=== PATIENT | female | born 1995 | race Caucasian/White ===

== ENCOUNTER 2022-03-10 17:45 | Inpatient (IN) | payer BC ==
[2022-03-10] MEDS ORDERED: Lidocaine 1% (PF) 30 ML VIAL SC PRN (17:46)
[2022-03-10] MEDS ORDERED: hydrALAZINE 20 MG/ML VIAL SLOW IVP PRN ×2 (17:46→23:57)
[2022-03-10] MEDS ORDERED: Misoprostol 200 MCG TAB PR PRN (17:46)
[2022-03-10] MEDS ORDERED: Diphenoxylate HCl/Atropine Tablet PO PRN ×2 (17:46)
[2022-03-10] MEDS ORDERED: Ondansetron PF 4 MG/2 ML Vial IVP PRN ×2 (17:46→23:57)
[2022-03-10] MEDS ORDERED: Ibuprofen 800 MG TAB PO PRN (17:46)
[2022-03-10] MEDS ORDERED: Promethazine HCl 25 MG/ML VIAL IM PRN (17:46)
[2022-03-10] MEDS ORDERED: Butorphanol Tartrate 1 MG/ML VIAL SLOW IVP PRN (17:46)
[2022-03-10] MEDS ORDERED: Zolpidem Tartrate 5 MG TAB PO PRN ×2 (17:46→23:57)
[2022-03-10] MEDS ORDERED: HYDROcodone/Acetaminophen 5/325 mg Tablet PO PRN ×4 (17:46→23:57)
[2022-03-10] MEDS ORDERED: Acetaminophen 500 MG TAB PO PRN (17:46)
[2022-03-10] MEDS ORDERED: Lactated Ringer's 1,000 ML IV SCH (18:00)
[2022-03-10] MEDS ORDERED: NS w/ Oxytocin 30 units 500 ML IV SCH (18:00)
[2022-03-10 19:39] VITALS: BMI 31.1
[2022-03-10 20:04] LABS: Hemoglobin 12.2 g/dL (12.0-15.5); Mean Corpuscular HGB CONC 33.7 g/dL (32.0-36.0); Mean Corpuscular Hemoglobin 32.3 pg (27.0-33.0); Mean Corpuscular Volume 95.8 fl (81.6-98.3); Mean Platelet Volume 9.8 fl (7.4-10.4); Platelet Count 224 10x3/uL (150-450); RBC Distribution Width 12.2 % (11.5-14.5); Red Blood Cell (RBC) Count 3.78 10x6/uL (3.90-5.03); White Blood Cell (WBC) Count 13.2 10x3/uL (3.5-10.5)
[2022-03-10 20:36] LABS: Syphilis Antibody Nonreactive (Nonreactive); Syphilis Antibody Index 0.06 S/CO (<1.00 Non-Reactive)
[2022-03-10 20:37] LABS: HIV (1/2) Antibody/Antigen Non-Reactive (NonReactive); HIV 1/2 INDEX 0.11 S/CO (<1.00); Hep B Surf Ag Non-Reactive S/CO (NonReactive)
[2022-03-10 20:38] LABS: HBSAg Index 0.16 S/CO (0-0.99)
[2022-03-10 20:45] LABS: SARS-CoV-2 NAA Rapid Test Not Detected (NotDetected)
[2022-03-10] MEDS ORDERED: diphenhydrAMINE 25 MG CAP PO PRN (23:57)
[2022-03-10] MEDS ORDERED: Boostrix 0.5 ML (Tdap) VIAL IM ONE (23:57)
[2022-03-10] MEDS ORDERED: Preparation H Ointment 28 GM TUBE PR PRN (23:57)
[2022-03-10] MEDS ORDERED: Lanolin Ointment 7 GM TUBE TOP PRN (23:57)
[2022-03-10] MEDS ORDERED: Bisacodyl 10 MG SUPP PR PRN (23:57)
[2022-03-10] MEDS ORDERED: Milk Of Magnesia 30 ML UDCUP PO PRN (23:57)
[2022-03-10] MEDS ORDERED: Misoprostol 200 MCG TAB VAG PRN (23:57)
[2022-03-10] MEDS ORDERED: Acetaminophen 325 MG TAB PO PRN (23:59)
[2022-03-10] MEDS ORDERED: Witch Hazel-Glycerin 1 EACH JAR TOP PRN (23:59)
[2022-03-11] MEDS: NS w/ Oxytocin 30 units 500 ML IV SCH ×2 (00:38→00:39)
[2022-03-11] MEDS: Ibuprofen 800 MG TAB PO SCH ×3 (05:55→21:21)
[2022-03-11 05:57] LABS: Hemoglobin 12.5 g/dL (12.0-15.5); Mean Corpuscular HGB CONC 34.5 g/dL (32.0-36.0); Mean Corpuscular Hemoglobin 32.9 pg (27.0-33.0); Mean Corpuscular Volume 95.3 fl (81.6-98.3); Mean Platelet Volume 9.2 fl (7.4-10.4); Platelet Count 213 10x3/uL (150-450); RBC Distribution Width 12.2 % (11.5-14.5); White Blood Cell (WBC) Count 21.7 10x3/uL (3.5-10.5)
[2022-03-11] MEDS: Ferrous Sulfate 325 MG TAB PO SCH ×2 (08:57→16:44)
[2022-03-11] MEDS: Docusate 100 MG CAP PO SCH ×2 (09:13→21:21)
[2022-03-11] MEDS: Prenatal Vitamin 1 TAB PO SCH (09:13)
[2022-03-12] MEDS: Ibuprofen 800 MG TAB PO SCH (05:03)
[2022-03-12] MEDS: Ferrous Sulfate 325 MG TAB PO SCH (07:41)
[2022-03-12 07:55] VITALS: BP 117/59; TEMP 98.4
[2022-03-12] MEDS: Docusate 100 MG CAP PO SCH (08:26)
[2022-03-12] MEDS: Prenatal Vitamin 1 TAB PO SCH (08:26)
== END 2022-03-12 13:14 | disposition home or self-care (01) | DRG 807 ==
LOC: CSHLD/OP 17:45 → CSHLD 22:43 → CSHPP 03-11 08:30
PROVIDERS: ADMIT Obstetrics & Gynecology; ATTEND Obstetrics & Gynecology
PROC: 10E0XZZ Delivery of Products of Conception, External Approach (ICD-10-PCS; principal; 2022-03-11)
PROC: 0HQ9XZZ Repair Perineum Skin, External Approach (ICD-10-PCS; 2022-03-11)
DX: O42.02 Full-term premature rupture of membranes, onset of labor within 24 hours of rupture (principal); Z37.0 Single live birth; Z20.822 Contact with and (suspected) exposure to COVID-19; Z3A.40 40 weeks gestation of pregnancy; Z86.16 Personal history of COVID-19; Z79.82 Long term (current) use of aspirin; O70.0 First degree perineal laceration during delivery; O66.0 Obstructed labor due to shoulder dystocia
CPT/HCPCS: 85027; 86780; 86850; 86900; 86901; 87340; 87389; 99285; J2001; J2590; U0002